=== PATIENT | female | born 1970 | race American Indian/Alaskan Native ===

== ENCOUNTER 2020-08-05 10:42 | Outpatient (CLI) | payer OTHER ==
--- NOTE | 2020-08-05 13:38 | XRay Report ---
LUMBAR SPINE 3 VIEWS INDICATION / CLINICAL INFORMATION: BACK PAIN. COMPARISON: None available. FINDINGS: Mild diffuse degenerative change. No other significant skeletal abnormality. Alignment is normal. Signer Name: Mir Gaytan MD FACR Signed: 08/05/2020 1:33 PM Workstation Name: [id number]
== END 2020-08-05 10:43 | disposition home or self-care (01) ==
LOC: XRAY 10:42
PROVIDERS: ATTEND Internal Medicine
DX: M54.5 Low back pain (principal); I10 Essential (primary) hypertension; Q65.89 Other specified congenital deformities of hip
CPT/HCPCS: 72100